=== PATIENT | female | born 1980 | race Caucasian/White ===

== ENCOUNTER 2022-05-25 20:33 | Emergency (ER) | payer BC, OTHER ==
[2022-05-25] MEDS ORDERED: Proparacaine 0.5% Ophth Soln 15 ML Bottle EYELF ONE (20:42)
[2022-05-25] MEDS ORDERED: Fluorescein 1 MG Ophth Strip ONE (20:52)
[2022-05-25] MEDS ORDERED: Fluorescein 1 MG Ophth Strip EYELF ONE (20:55)
[2022-05-25] MEDS ORDERED: Dexamethasone/Tobramycin 0.1-0.3% Ophth Susp 5 ML Bottle EYELF SCH (21:15)
== END 2022-05-25 21:42 | disposition home or self-care (01) ==
LOC: JD.ED 20:33
DX: H20.9 Unspecified iridocyclitis (principal); Z86.16 Personal history of COVID-19
CPT/HCPCS: 99283; A9270